=== PATIENT | male | born 1940 | race Caucasian/White ===

== ENCOUNTER → 2016-12-29 | Outpatient (CLI) | payer MEDICARE, BC ==
[~2016-12-29] MED LIST: ASPIRIN81 M2 PO; CALCIUM 500-VI1 EACH; FISH OIL 1,0001 EAC1 PO; FLOMAX0.4 M1 PO; LEVO-T175 MCG; METHYL B; NIACIN500 M2 PO; PERCOCET 5/321 UDTAB PO; POTASSIUM CHLO10 MEQ; VITAMIN D400 UNI1 PO; XARELTO10 MG PO; ZESTORETIC 20-1 EAC1 PO; ZETIA PO
--- NOTE | ~2016-12-29 | CT95 ---
[facility] A Service of [facility] & [facility] RADIOLOGY TEXT RESULTS PATIENT: EDISON WARD LOCATION: [facility] : 39 UNIT #: [id number] AGE: [address]: Felipe Aragon MD SEX: M ORDER DR: [id number] [place] [id number] [facility]. [place], [place] [address] [id number] MR#: [id number] Acc #: [id number] NAME: EDISON WARD : 1940 SEX: M STUDY DATE/TIME: 12/29/2016 15:58 UNIT: [facility] ROOM: STUDY DESCRIPTION: CT Lower Ext Rt Wo Cont Attending Physician: Quita Aragon M.D. Referring Physician: Quita Aragon M.D. Ordering Physician: Quita Aragon M.D. Primary Care Physician: Primary Care Physician No MEDICAL IMAGING REPORT This report is preliminary unless electronic signature is present EXAM CT right ankle HISTORY 76-year-old male preoperative planning for INFINITY proxy ankle replacement. Complains of right ankle pain since May 2016. COMPARISON Right ankle films, 12/29/2016 TECHNIQUE Thin section axial images performed through the right knee and ankle according to preoperative planning protocol. This CT exam was performed with one or more of the following radiation dose reduction techniques: automatic exposure control, adjustment of mA and/or kV according to patient size, and iterative reconstruction. FINDINGS Examination demonstrates moderate to severe arthritic changes of the right ankle joint. 11.0 mm lesion is seen in the posterior aspect of the ankle that may represent a large partially ossified loose body. Dystrophic calcifications and apparent tendinopathy noted involving the peroneal tendons. Heterotopic ossification noted anterior to the distal fibula may be related to the sequela of old lateral ankle sprain. There is a subtalar joint effusion. Advanced arthritic change is seen at the first MTP joint. Visualized knee remarkable for only minimal patellofemoral arthrosis. Lower leg soft tissues unremarkable. IMPRESSION 1. Moderate to severe arthritic change of ankle joint with multiple calcifications. Small ossifications about the ankle joint suggesting loose bodies as well as a 11.0 mm structure posterior ankle joint [facility] A Service of [facility] & [facility] RADIOLOGY TEXT RESULTS PATIENT: EDISON WARD LOCATION: [facility] : 39 UNIT #: [id number] AGE: [address]: Felipe Aragon MD SEX: M ORDER DR: that may represent a sizable loose body. 2. 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 3. Advanced arthritic changes first MTP joint. Dictated by... Junior Pineda M.D. THIS IS AN ELECTRONICALLY VERIFIED REPORT Junior Pineda M.D. at 12/31/2016 7:26 AM Sharita TD: 12/30/2016 10:01 JOB #: [id number] MEDICAL IMAGING REPORT Page 1 of 1 COPY
== END | disposition home or self-care (01) ==
LOC: CCAT 15:42
DX: M19.071 Primary osteoarthritis, right ankle and foot (principal)
CPT/HCPCS: 73700

== ENCOUNTER → 2017-01-25 | Outpatient (CLI) | payer MEDICARE, BC ==
--- NOTE | ~2017-01-25 | EKG ---
PATIENT: EDISON WARD UNIT #: [id number] Ventricular Rate: 76 BPM Atrial Rate: 76 BPM P-R Interval: 256 ms QRS Duration: 92 ms Q-T Interval: 374 ms QTC Calculation(Bezet): 420 ms P [place]: 31 degrees Calculated R [place]: 0 degrees Calculated T [place]: 45 degrees Diagnosis Line: Sinus rhythm with 1st degree A-V block Diagnosis Line: Otherwise normal ECG Diagnosis Line: No previous ECGs available Diagnosis Line: Confirmed by TERE ANDRADE MD ([id number]) on 01/26/2017 Diagnosis Line: 7:35:51 PM INTERPRETING MD: RAYMOND GUZMAN
[2017-01-25 11:23] LABS: URINE APPEARANCE CLEAR; URINE BILIRUBIN NEG (NEG); URINE BLOOD NEG (NEG); URINE COLOR YELLOW; URINE GLUCOSE NEG (NEG); URINE KETONE NEG (NEG); URINE LEUKOCYTE ESTERASE NEG (NEG); URINE NITRATE NEG (NEG); URINE PH 5.5 (5-8); URINE PROTEIN NEG (NEG); URINE SPECIFIC GRAVITY 1.017 (1.003-1.035); URINE UROBILINOGEN 0.2 MG/DL (NEG)
[2017-01-25 11:25] LABS: URINE SOURCE CLEAN CATCH
[2017-01-25 11:26] LABS: CULTURE INDICATED? NO
[2017-01-25 11:31] LABS: HEMATOCRIT 41.6 % (38.0-50.0); HEMOGLOBIN 14.8 gm/dL (13.0-16.0); MEAN CELL VOLUME 90.8 FL (83-96); MEAN CORPUSCULAR HEMOGLOBIN 32.3 PG (28-34); MEAN CORPUSCULAR HGB CONC 35.6 g/dL (30-36); MEAN PLATELET VOLUME 6.9 FL (6.5-11.5); RED BLOOD COUNT 4.59 X10e (3.90-5.60); RED CELL DISTRIBUTION WIDTH 13.2 % (11.0-15.5); WHITE BLOOD COUNT 5.3 X10e3 (4.0-10.5)
[2017-01-25 12:07] LABS: BUN/CREATININE RATIO 27.5; CALCIUM SERUM 9.8 mg/dL (8.4-10.2); CREATININE SERUM 0.8 mg/dL (0.6-1.4); GLOM FILT RATE Estimated 86.2 mL/min (>60); POTASSIUM 4.1 mmol/L (3.5-5.1)
== END | disposition home or self-care (01) ==
LOC: CAMB 10:12 → EDBD 11:00 → EDSTATUS 11:00 → CAMB 11:00
PROVIDERS: Orthopaedic Surgery
DX: Z01.818 Encounter for other preprocedural examination (principal); M19.071 Primary osteoarthritis, right ankle and foot
CPT/HCPCS: 36415; 80048; 81003; 85027; 87070; 93005

== ENCOUNTER 2017-02-08 05:37 | Inpatient (IN) | payer MEDICARE, BC ==
[~2017-02-08] VITALS: Ht 177.8 cm; Wt 85.5 kg
--- NOTE | ~2017-02-08 | OR ---
Unit #: [id number] #: [id number] Patient: EDISON WARD [id number] [address] [place], [place] [address] [id number] I MR#: [id number] NAME: EDISON WARD ROOM: [facility] Date of Procedure: 02/08/2017 Admission Date: 02/08/2017 Surgeon: Quita Aragon M.D. : 1940 Attending Physician: Quita Aragon M.D. Primary Care Physician: Generic Doctor Not In System OPERATIVE REPORT PREOPERATIVE DIAGNOSIS Right ankle degenerative arthritis. POSTOPERATIVE DIAGNOSIS Right ankle degenerative arthritis. PROCEDURE PERFORMED Right total ankle arthroplasty (12035). ASSISTANTS Dylan and Andreia. ANESTHESIA Popliteal saphenous block and general. INDICATIONS FOR SURGERY The patient is a 76-year-old male with end-stage right ankle arthritis unresponsive to conservative care. He now has pain with activities of daily living. Standing x-rays show [id number] apposition of the tibiotalar joint with 8 degrees of valgus deformity. The patient is therefore to undergo ankle replacement. He has been advised as to risks and benefits of ankle replacement versus ankle fusion and he agrees to proceed with ankle replacement. DESCRIPTION OF PROCEDURE The patient underwent right leg popliteal saphenous block. He was taken to the operating room and placed in supine position and general anesthetic was induced. The right lower extremity was identified as the correct operative location during the time-out procedure. The IV antibiotic protocol was followed. The right leg was then prepped and draped in the usual sterile fashion. The leg was exsanguinated and the thigh tourniquet was inflated to 300 mmHg. An anterior longitudinal incision was made over the ankle joint measuring 12 cm. The subcutaneous tissue was carefully divided. The superficial peroneal nerve was identified and preserved. The joint capsule was opened longitudinally and the ankle joint was exposed subperiosteally. The DashLuxeity MascotaNubeecy system was used for total ankle replacement. The patient's specific tibial guide was applied to the tibia and pinned into place under C-arm fluoroscopic control. The guide was removed and then the #3 cutting block was applied. The tibial cut was made and the anterior half of the cut bone was removed. The patient's specific talar Unit #: [id number] #: [id number] Patient: EDISON WARD guide was then placed on the talus and pinned into place. The guide was removed and the cutting block was reapplied. The talar cut was then made. Care was taken to ensure that both the medial and lateral gutters were cleared of all osteophytic tissue. A trial #3 tibial component was placed and a lateral view showed that a standard lateral #3 tibial component was appropriate. The 3 punches were then used to punch holes in the distal tibia for the tibial implant. The talar cutting guide was then applied and pinned into place. The two small screws were used in the posterolateral and posteromedial aspect of the guide to hold it down to the superior talar surface. The posterior talar cut was made and the anterior and chamfer cuts of the talus were then milled. This guide was then removed. The #3 talar trial component was impacted into place and found to fit appropriately. Stability was checked with varying thicknesses of poly and the 8 mm trial fit most appropriately and afforded proper stability with ankle dorsiflexion of 10 degrees and plantar flexion of 40 degrees, and no varus or valgus instability. The talar component was then pinned into place and the 2 drill holes were placed in the anterior portion of the talus. All bony surfaces were then pulse lavaged and dried. The #3 tibial component was impacted into place. The #3 talar component was impacted into place and a trial reduction with an 8 mm spacer was appropriate. Therefore, the 8 mm polyethylene spacer was then screwed into place and then gently impacted. Excellent fixation was achieved. Intraoperative AP and lateral C-arm fluoroscopic views documented satisfactory component position and again there was no evidence of varus or valgus laxity. A 3-minute dilute Betadine wash was applied and then the ankle joint was lavaged with normal saline. Tourniquet time was 90 minutes. Bleeding was controlled with electrocautery. The ankle joint capsule was closed with 2-0 Vicryl xrrpzs-gu-dmfxr sutures. The extensor retinaculum was closed with 2-0 Vicryl boyrjn-rt-nprqf sutures. Subcutaneous tissue was closed with 3-0 Vicryl suture and the skin was closed with 3-0 nylon horizontal mattress sutures. Xeroform gauze, dressing, sponges, cast padding, and Jareth wraps were applied. The patient was then transported to the recovery room in stable condition. ESTIMATED BLOOD LOSS Minimal. COMPLICATIONS None. SPECIMENS None. TOURNIQUET TIME 90 minutes. Dictated byJina Aragon M.D. [facility] Unit #: [id number] #: [id number] Patient: EDISON WARD TD: 02/08/2017 13:44 JOB #: [id number] OPERATIVE REPORT Page 1 of 1 X Felipe Aragon MD X PROCEDURE OPERATIVE NOTE
--- NOTE | ~2017-02-08 | OR ---
Unit #: [id number] #: [id number] Patient: EDISON WARD [id number] [address] [address] [id number] I MR#: [id number] NAME: EDISON WARD ROOM: [facility] Date of Procedure: 02/08/2017 Admission Date: 02/08/2017 Surgeon: Balaji Gupta M.D. : 1940 Attending Physician: Quita Aragon M.D. Primary Care Physician: Generic Doctor Not In System PROCEDURE OPERATIVE NOTE PREOPERATIVE DIAGNOSES 1. BPH with obstruction. 2. Difficult catheter placement. POSTOPERATIVE DIAGNOSIS 1. BPH with obstruction. 2. Difficult catheter placement. PROCEDURE PERFORMED Local cystoscopy. ANESTHESIA Local. INDICATION FOR THE PROCEDURE Patient is a pleasant 76-year-old gentleman with urinary retention. We are unable to place a Coleman catheter. Risks, benefits and alternatives including bleeding, infection, damage to adjacent structures, need for further surgery, as well as risk of anesthesia were explained to the patient. Informed consent was obtained. He wished to proceed. DESCRIPTION OF PROCEDURE The patient was placed in a supine position and his genitalia prepped and draped in the usual sterile fashion. I passed a flexible cystoscope. The entire urethra was normal. The prostate was enlarged but there was no clear false passage and while there was some tightness at the sphincter I was, with some effort, able to advance the cystoscope into the bladder. The bladder was distended and severely trabeculated. Visualization was somewhat limited but there were no obvious tumors. I passed the 0.035 Sensor wire which coiled in the bladder. I removed the cystoscope and passed a 16-[place] tip catheter over a wire. There was return of clear urine. PLAN We will start the patient on Flomax. Catheter should stay in place for approximately one week. We will do a voiding trial in one week. Dictated by... Balaji Gupta M.D. Unit #: [id number] #: [id number] Patient: EDISON WARD MDP/cf TD: 02/08/2017 22:51 JOB #: [id number] PROCEDURE OPERATIVE NOTE Page 1 of 1 X Balaji Gupta MD PROCEDURE OPERATIVE NOTE
--- NOTE | ~2017-02-08 | HP ---
Unit #: [id number] #: [id number] Patient: EDISON WARD [id number] [address] [address] [id number] O MR#: [id number] NAME: EDISON WARD ROOM: Age: Sex: M Admission Date: 02/08/2017 : 1940 Attending Physician: Quita Aragon M.D. Primary Care Physician: Generic Doctor Not In System HISTORY AND PHYSICAL DATE OF ANTICIPATED ADMISSION/PROCEDURE February 08, 2017 CHIEF COMPLAINT Right ankle pain. HISTORY OF PRESENT ILLNESS This 76-year-old male has a nine month history of increasing right ankle pain. He denies trauma. He has failed antiinflammatory medication, physical therapy, and corticosteroid injection. Radiographs show end-stage ankle arthritis with eight degree of tibiotalar valgus. The patient is admitted for ankle replacement. The risks and benefits of replacement versus fusion have been discussed, and he agrees to proceed with total ankle arthroplasty using the NovaSparksesy system. PAST MEDICAL HISTORY 1. Hypertension. 2. Hyperlipidemia. 3. Hypothyroidism. 4. Diet-controlled diabetes with hemoglobin A1c of 6.4. HOME MEDICATIONS 1. Aspirin. 2. Calcium. 3. Docusate sodium. 4. Ezetimibe. 5. Fish oil. 6. Levothyroxine. 7. Lisinopril. 8. Hydrochlorothiazide. 9. Methyl B-12. 10. Potassium chloride. PAST SURGICAL HISTORY Cholecystectomy. ALLERGIES None. FAMILY HISTORY Hypertension. SOCIAL HISTORY Patient is a previous smoker of one pack per day. He no longer smokes. Unit #: [id number] #: [id number] Patient: EDISON WARD He drinks alcohol socially. REVIEW OF SYSTEMS Unremarkable. PHYSICAL EXAMINATION VITAL SIGNS: Height 5 feet 10, weight 195 pounds. GENERAL: This is a well-developed, well-nourished male in no acute distress. HEENT: Pharynx is clear. NECK: Supple without masses. HEART: Regular sinus rhythm without murmurs or gallops. LUNGS: Clear. ABDOMEN: Soft and nontender without masses or organomegaly. EXTREMITIES: Evaluation of the right foot shows a normal arch with mild metatarsus adductus. The heel is neutral. He has hammering of the hallux. Right ankle dorsiflexion 5 degrees and plantar flexion 40 degrees. Subtalar motion normal. First MTP joint motion is normal. The patient is maximally tender to palpation over the anterior aspect of the tibiotalar joint. Motor examination is normal. Sensation is normal. Pulses are normal. DIAGNOSTIC STUDIES IMAGING: Standing x-rays of the right ankle demonstrate superior lateral joint space loss with about 8 degrees of contained tibiotalar valgus. There is end-stage arthritis of the tibiotalar joint. ADMITTING DIAGNOSIS Right ankle degenerative arthritis. PLAN The patient has failed conservative care. He is therefore admitted for right total ankle arthroplasty using the SurDoc System. This procedure was described along with the risks of bleeding, infection, nerve damage, need for further surgery in the future, prolonged recovery time, deep venous thrombosis, pulmonary embolism, anesthetic complications, loosening of the prosthesis, infection of the prosthesis, and need for multiple revision surgeries. He understands the above risks and agrees to proceed with the treatment plan. He reviewed the operative permit and signed it in our office. Dictated by Bony Rodriguez/jeffrey TD: 02/07/2017 19:53 JOB #: [id number] Unit #: [id number] #: [id number] Patient: EDISON WARD HISTORY AND PHYSICAL Page 1 of 1 X Felipe Aragon MD X HISTORY AND PHYSICAL
--- NOTE | ~2017-02-08 | CO ---
Unit #: [id number] #: [id number] Patient: EDISON WARD [id number] [address] [address] [id number] I MR#: [id number] NAME: EDISON WARD ROOM: 449 Age: 76 Sex: M Admission Date: 02/08/2017 : 1940 Attending Physician: Quita Aragon M.D. Primary Care Physician: Generic Doctor Not In System CONSULTATION REPORT CHIEF COMPLAINT Urinary retention. REASON FOR CONSULTATION 1. BPH with obstruction. 2. Urinary retention. 3. Difficult catheter placement. HISTORY OF PRESENT ILLNESS The patient is a 76-year-old male who underwent a right total ankle arthroplasty today. He did well with this, but he has been unable to void postoperatively. The nursing staff has been unable to place a Coleman catheter. He relates that he has had an enlarged prostate and elevated PSA in the past. He has followed up with urologist in [place]. Preoperatively he did have some urinary frequency and weak stream. He denies gross hematuria. PAST MEDICAL HISTORY 1. Hypertension. 2. Hyperlipidemia. 3. Hypothyroidism. 4. Diabetes. 5. BPH. PAST SURGICAL HISTORY Cholecystectomy. SOCIAL HISTORY Previous smoker. No longer smokes. FAMILY HISTORY Hypertension. ALLERGIES No known drug allergies. HOME MEDICATIONS Documented in the chart. REVIEW OF SYSTEMS Positive for urinary frequency. Negative for hematuria. Positive for urinary retention at this time. PHYSICAL EXAMINATION Unit #: [id number] #: [id number] Patient: EDISON WARD GENERAL: He is a well-developed, alert male in no acute distress. VITALS: Temperature 98.7, blood pressure 122/70, pulse 67, respiratory rate 18. HEENT: Normocephalic, atraumatic. Extraocular movements are intact. NECK: Supple. No lymphadenopathy. LUNGS: Respirations are unlabored. The patient is breathing comfortably. HEART: Regular rate and rhythm. ABDOMEN: Soft and nontender, but the bladder is distended and palpable. GENITALIA: There is a normal meatus, but there is a little bit of blood at the meatus from prior catheter placement. Penis is within normal limits. EXTREMITIES: No clubbing, cyanosis or edema. Right lower extremity dressing is clean, dry and intact. PROCEDURE I attempted to place a 16-Armenian coude catheter but I was unable to advance this into the bladder. ASSESSMENT Urinary retention. PLAN We will plan for cystoscopy and catheter placement. The risks, benefits and alternatives were discussed with the patient, including bleeding, infection, damage to adjacent structures, need for further surgery. Informed consent was obtained. He wishes to proceed. Dictated by... Bony Trinh/gz TD: 02/09/2017 07:00 JOB #: [id number] CONSULTATION REPORT Page 1 of 1 X Balaji Gupta MD X CONSULTATION REPORT
[~2017-02-08 05:37] MED LIST changes: -ASPIRIN81 M2 PO; -CALCIUM 500-VI1 EACH; -FISH OIL 1,0001 EAC1 PO; -FLOMAX0.4 M1 PO; -LEVO-T175 MCG; -NIACIN500 M2 PO; -PERCOCET 5/321 UDTAB PO; -POTASSIUM CHLO10 MEQ; -VITAMIN D400 UNI1 PO; -XARELTO10 MG PO; -ZESTORETIC 20-1 EAC1 PO
[2017-02-08] MEDS ORDERED: ASPIRIN81 M2 PO (11:28)
[2017-02-08] MEDS ORDERED: CALCIUM 500-VI1 EACH (11:29)
[2017-02-08] MEDS ORDERED: ZESTORETIC 20-1 EAC1 PO (11:30)
[2017-02-08] MEDS ORDERED: POTASSIUM CHLO10 MEQ (11:31)
[2017-02-08] MEDS ORDERED: LEVO-T175 MCG (11:31)
[2017-02-08] MEDS ORDERED: VITAMIN D400 UNI1 PO (11:32)
[2017-02-08] MEDS ORDERED: NIACIN500 M2 PO (11:33)
[2017-02-08] MEDS ORDERED: FISH OIL 1,0001 EAC1 PO (11:34)
[2017-02-09] MEDS ORDERED: XARELTO10 MG PO (09:51)
[2017-02-09] MEDS ORDERED: PERCOCET 5/321 UDTAB PO (09:56)
[2017-02-09] MEDS ORDERED: FLOMAX0.4 M1 PO (09:57)
== END 2017-02-09 14:34 | disposition home or self-care (01) | DRG 470 ==
LOC: CSUR 05:37 → CPACUOF 07:20 → CSUR 07:30 → CPACUOF 08:45 → C4B 12:00 → EDBD 14:30 → CSUR 14:30 → C4B 02-09 14:34
PROVIDERS: Orthopaedic Surgery
PROC: 0SRF0JZ Replacement of Right Ankle Joint with Synthetic Substitute, Open Approach (ICD-10-PCS; 2017-02-08)
PROC: 0TJB8ZZ Inspection of Bladder, Via Natural or Artificial Opening Endoscopic (ICD-10-PCS; principal; 2017-02-08 07:30)
DX: M19.071 Primary osteoarthritis, right ankle and foot (principal); E11.9 Type 2 diabetes mellitus without complications; N13.8 Other obstructive and reflux uropathy; I10 Essential (primary) hypertension; E78.5 Hyperlipidemia, unspecified; Z79.82 Long term (current) use of aspirin; Z82.49 Family history of ischemic heart disease and other diseases of the circulatory system; Z90.49 Acquired absence of other specified parts of digestive tract; N40.1 Benign prostatic hyperplasia with lower urinary tract symptoms; R33.8 Other retention of urine; E03.9 Hypothyroidism, unspecified; I25.10 Atherosclerotic heart disease of native coronary artery without angina pectoris
CPT/HCPCS: 82947; 94760; 94762; 97116; 97161; 97530; C1776; G8978-GP; G8979-GP; G8980-GP; J0330; J0690; J2250; J2270; J2405; J2710; J2795; J3010